=== PATIENT | female | born 1980 | race Caucasian/White ===

== ENCOUNTER 2021-03-03 12:38 | Emergency (ER) | payer OTHER, SELFPAY ==
--- NOTE | ~2021-03-03 | CT_ITS ---
EXAMINATION: CT ANGIOGRAM OF THE CHEST WITH AND WITHOUT CONTRAST (CT PULMONARY ANGIOGRAM FOR PE) CLINICAL INFORMATION: Left-sided pleuritic chest pain, elevated D-dimer. COMPARISON: Chest radiograph dated from 07/24/2019. TECHNIQUE: Prior to contrast administration, noncontrast localization images were obtained. Subsequently, multidetector volumetric imaging was performed from the thoracic inlet to below the diaphragms following the administration of 80 mL Omnipaque 350 intravenous contrast. No contrast reaction reported Sagittal, coronal, and MIP oblique sagittal reformatted images were obtained on the CT workstation, uploaded to PACS, and reviewed. This CT examination was performed using dose optimization techniques as appropriate, variously including the following: *Automated exposure control *Adjustment of mA and/or kV according to patient size (this includes techniques or standardized protocols for targeted exams where dose is matched to indication/reason for exam; i.e. extremities or head) *Use of iterative reconstruction technique Total exam dose-length product 257 mGy-cm FINDINGS: QUALITY OF STUDY/CONTRAST BOLUS: Satisfactory. PULMONARY ARTERIES: No central or segmental pulmonary emboli. THORACIC AORTA: No aneurysm or dissection. LUNG: No focal airspace opacities, pleural effusions or pneumothorax. Minimal dependent atelectasis and mild bronchial wall thickening within segmental and subsegmental bronchial branches. There is a subcentimeter calcified granuloma posteriorly in the right lower lobe. There is a 2 mm pulmonary nodule in the left lower lobe (347:7) of uncertain clinical significance. PLEURA: No pleural effusion or pneumothorax. MEDIASTINUM: Normal heart size. No pericardial effusion. No hilar or mediastinal lymphadenopathy. No evidence of septal bowing or right heart strain. CHEST WALL/AXILLA: Prominent left greater than right axillary lymph nodes are likely reactive in nature. No lymphadenopathy by size criteria. OSSEOUS STRUCTURES: No acute or suspicious osseous abnormality. UPPER ABDOMEN: Hepatic steatosis. No reflux of contrast into the hepatic veins to suggest elevated right heart pressures. CT/CT angio chest PE protocol IMPRESSION: No evidence of pulmonary embolism. Aside from minimal bronchial wall thickening which could be seen in the setting of infectious/inflammatory processes of the small airways, the lungs are clear. A tiny left lower lobe pulmonary nodule is of uncertain clinical significance and in a patient without risk factors does not requires further workup. Hepatic steatosis. VTE: negative
[2021-03-03 13:48] VITALS: BP 152/102; PULSE 88; RESP 18; TEMP 35.8; O2SAT 100; BMI 29.5
--- NOTE | 2021-03-03 21:03 | ECG_ITS ---
Test Reason : SOB Blood Pressure : / mmHG Vent. Rate : 079 BPM Atrial Rate : 079 BPM P-R Int : 180 ms QRS Dur : 078 ms QT Int : 382 ms P-R-T Axes : 000 -06 -05 degrees QTc Int : 438 ms Normal sinus rhythm Normal ECG No significant changes seen Referred By: Mathew Atwood Electronically Signed By:KERMIT MARTINEZ MD
--- NOTE | 2021-03-03 21:04 | ED_ITS ---
HPI - General Adult General Chief complaint: General Medical Stated complaint: inflamation in lungs Time Seen by Provider: 03/03/21 20:44 Source: patient Mode of arrival: ambulatory Limitations: no limitations History of Present Illness HPI narrative: 40-year-old female who presents emergency department for evaluati on of left-sided pleuritic chest pain and left arm pain. She states that the pain began on Sunday (3 days prior to arrival). She states the pain came on suddenly at 3:00 a.m.. She also developed pain in her left elbow and upper arm. She states that the chest pain is a constant, sharp pain which is located on her left anterior and posterior chest, it is worse with breathing and unchanged with movement. The pain is 8/10 at its worst. She denied shortness of breath at rest but does have dyspnea on exertion. She also is complaining of left elbow and left arm pain from the elbow to the shoulder. She states this is a constant, sharp pain which is 7/10 at its worst. The pain is worse with movement of her elbow. She denied fever, chills, cough, myalgias, arthralgias. She states the pain is worse with sitting up and does not change of she lies down flat. The patient was seen at [facility] on the day the pain pain can (Sunday). The patient states she had blood work and a CT scan without contrast which was unremarkable. She was advised to take ibuprofen and this is not been helping her pain. 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 She states that last weekend she did work there and may have injured her arm when she lifted a bucket. The patient denies any recent travel. She denies pain or swelling in her lower extremities. She does not take control pills or estrogen supplements. Related Data Allergies Allergy/AdvReac Type Severity Reaction Status Date / Time No Known Allergies Allergy Unknown Unverified 02/12/20 16:41 Review of Systems Review of Systems: Yes all other systems are reviewed and are negative [facility] Past Medical History [facility] Narrative: Past medical history: Hypertension, asthma, back problems. Past surgical history: Appendectomy, cholecystectomy. 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 She denies tobacco and alcohol use. She denies drug use. Medical History Asthma HTN (hypertension) Hyperlipidemia Social History Social History Advance Directives: No Patient : No Physical Exam Vital Signs: Vital Signs: Last Vital Signs Temp 98.4 F 03/03/21 21:48 Pulse 80 03/03/21 23:23 Resp 16 03/03/21 23:23 BP 122/84 03/03/21 23:23 Pulse Ox 98 03/03/21 23:23 Body Mass Index 29.5 Const: General: cooperative and no acute distress Orientation/consciousness: oriented to person and oriented to place Limitations: no limitations HENMT: Head: Yes normal to inspection, Yes normocephalic and Yes atraumatic Ears: external ears normal General nose exam: Normal external nose present Face and sinus: Yes normal facial exam Mouth: Normal oral and palatal mucosa present Throat: Yes posterior oropharynx normal Eyes: General: appearance normal, both eyes and all related structures Pupils: Equal, round and reactive pupils present Neck: Neck: Yes normal visual inspection, Yes no lymphadenopathy, Yes trachea midline and Yes supple Chest: Other: Normal inspection of the chest, there was no rashes or lesions noted. Patient does have tenderness with palpation of her sternum and left anterior costochondral joints. She also has tenderness with palpation of her left lateral and left posterior chest wall. Resp: Effort & Inspection: normal respiratory effort and able to speak in comp lete sentences Auscultation: clear to auscultation bilaterally Cardio: Rate: regular rate Rhythm: regular rhythm Heart sounds: S1 normal heart sound present, S2 normal heart sound present and no murmurs GI: Inspection: Yes normal to inspection Palpation (GI): Soft to palpation, nontender and no guarding Auscultation: normal bowel sounds : General: Yes no CVA tenderness Back/Spine/Pelvis: Back: no CVA tenderness Skin: General skin exam: no rashes or lesions noted Neuro: General: oriented to person and oriented to place Cranial nerves: Yes CN's II-XII intact bilaterally and Yes Equal, round and reactive pupils present Cognition (Neuro): normal cognition Motor exam (neuro): 5/5 motor strength present throughout Extrem: Other: Patient does have palpation with her elbow mainly over the lateral condyle, she has pain with active pronation supination of the elbow and less pain with passive movement of the elbow, she has minimal pain with flexion extension of the elbow. She also has pain with palpation of the biceps and triceps area of her arm with no pain with palpation over her deltoid muscle. Her extremities neurovascularly intact. Psych: Appearance: grossly normal Speech and movement: Normal speech and movement present Affect: normal affect Attitude: cooperative Thought process: Normal thought process present Thought content: Normal thought content present Course Course Course Narrative: 40-year-old female who presents emergency department for evaluation of left-sided pleuritic chest pain and left elbow and upper extremity pain x3 days. The patient's vital signs did reveal that she was hypertensive with a blood pressure of 152/102. O2 saturation was 100% on room air. Physical examination did reveal pain with movement of the left elbow which I believe is consistent with tendinitis of the elbow. She also has pain with palpation of her anterior lateral and posterior chest on the left with no skin findings. The patient was seen at [facility] 3 days prior and had a CT scan without IV contrast which was unremarkable. The patient's pain is not improved and she feels worse . Differential includes was not limited to costochondritis, chest wall injury, pericarditis, pulmonary embolism, pneumonia, pneumothorax. I obtain the following blood tests on her: CBC, CMP, D-dimer and troponin. I will obtain an EKG as well. Patient's pain was treated with Toradol 30 mg IV. 0010: Patient's D-dimer was elevated. CT chest pulmonary angiogram was obtained, there is no pulmonary embolism noted, patient does have some increased bronchial thickening which is nonspecific and I do not think this is the cause of her pleuritic pain. She has a small pulmonary nodule which I do not think is significant, the patient is not a smoker I do not think that she needs follow-up for this finding. I did discuss this with the patient. The patient did feel better after receiving IV Toradol. The patient's pleuritic pain will be treated with ibuprofen 600 mg 3 times a day and Tylenol 1000 mg 3 times a day as needed for pain. The patient was discharged home. Medical Decision Making Lab Data Result diagrams: 03/03/21 21:28 03/03/21 21:48 Labs: Lab Results 03/03/21 03/03/21 03/03/21 Range/Units 21:28 21:28 21:48 WBC 10.5 (4.8-10.8) X10*3/uL RBC 4.89 (4.20-5.50) X10*6/uL Hgb 13.9 (12.0-16.0) g/dl Hct 42.4 (37-47) % MCV 86.7 (80-98) fL MCH 28.4 (27.0-33.0) pg MCHC 32.8 (31.0-35.0) g/dl RDW 12.5 (11.0-16.0) % Plt Count 280 (160-400) X10*3/uL MPV 10.3 (9.4-12.3) fL Immature Gran % (Auto) 0.3 (0.0-0.4) % Neut % (Auto) 56.2 (45-73) % Lymph % (Auto) 33.4 (20-40) % Mitchell % (Auto) 4.8 (2-11) % Eos % (Auto) 4.8 H (0-4) % Baso % (Auto) 0.5 (0-2) % Lymph # (Auto) 3.5 (1.2-4.9) X10*3/uL Mitchell # (Auto) 0.5 (0.1-1.2) X10*3/uL Eos # (Auto) 0.5 H (0.0-0.4) X10*3/uL Baso # (Auto) 0.1 (0.0-0.2) X10*3/uL Abs Immat Gran (auto) 0.03 (0.00-0.03) X10*3/uL Absolute Neuts (auto) 5.9 (2.0-8.3) X10*3/uL Absolute Nucleated RBC 0.000 (0.0-0.012) X10*3/uL Nucleated RBC % (auto) 0.0 (0.0-0.2) /100WBC D-Dimer 290 NG/ML Sodium (135-145) mmol/L Potassium (3.3-5.1) mmol/L Chloride (96-108) mmol/L Carbon Dioxide (22-29) mmol/L Anion Gap (12-20) BUN (9-16) mg/dL Creatinine (0.5-1.4) mg/dL Estim Creat Clear Calc Estimated GFR Random Glucose (60-115) mg/dL Calcium (8.4-10.2) mg/dL Total Bilirubin (0.0-1.0) mg/dL AST (5-31) U/L ALT (0-31) U/L Alkaline Phosphatase (39-117) U/L Troponin I High Sens < 3.5 (<3.5-17.0) ng/L Total Protein (6.5-8.0) g/dL Albumin (3.5-5.0) g/dL 03/03/21 Range/Units 21:48 WBC (4.8-10.8) X10*3/uL RBC (4.20-5.50) X10*6/uL Hgb (12.0-16.0) g/dl Hct (37-47) % MCV (80-98) fL MCH (27.0-33.0) pg MCHC (31.0-35.0) g/dl RDW (11.0-16.0) % Plt Count (160-400) X10*3/uL MPV (9.4-12.3) fL Immature Gran % (Auto) (0.0-0.4) % Neut % (Auto) (45-73) % Lymph % (Auto) (20-40) % Mitchell % (Auto) (2-11) % Eos % (Auto) (0-4) % Baso % (Auto) (0-2) % Lymph # (Auto) (1.2-4.9) X10*3/uL Mitchell # (Auto) (0.1-1.2) X10*3/uL Eos # (Auto) (0.0-0.4) X10*3/uL Baso # (Auto) (0.0-0.2) X10*3/uL Abs Immat Gran (auto) (0.00-0.03) X10*3/uL Absolute Neuts (auto) (2.0-8.3) X10*3/uL Absolute Nucleated RBC (0.0-0.012) X10*3/uL Nucleated RBC % (auto) (0.0-0.2) /100WBC D-Dimer NG/ML Sodium 138 (135-145) mmol/L Potassium 4.3 (3.3-5.1) mmol/L Chloride 106 (96-108) mmol/L Carbon Dioxide 24 (22-29) mmol/L Anion Gap 12 (12-20) BUN 10 (9-16) mg/dL Creatinine 0.83 (0.5-1.4) mg/dL Estim Creat Clear Calc 87.8 Estimated GFR > 60 Random Glucose 86 (60-115) mg/dL Calcium 9.5 (8.4-10.2) mg/dL Total Bilirubin 0.5 (0.0-1.0) mg/dL AST 19 (5-31) U/L ALT 24 (0-31) U/L Alkaline Phosphatase 84 (39-117) U/L Troponin I High Sens (<3.5-17.0) ng/L Total Protein 7.5 (6.5-8.0) g/dL Albumin 4.1 (3.5-5.0) g/dL Discharge Plan Discharge Clinical Impression: Pleuritic chest pain, Left elbow tendinitis Patient Disposition: Home, Self-Care Instructions: Pleurisy (ED), Tendinitis (ED) Additional Instructions: Take ibuprofen 200 mg pills, 3 pills every 6 hours for 4 days then as needed for pain Take Tylenol (acetaminophen) 500 mg pills, 2 pills every 4 to 6 hours as needed for pain. Follow-up with your doctor in 2 days. Please return to the emergency department if your symptoms get worse or if you develop any symptoms that are concerning to you. Stand Alone Forms: Work/School Release
[2021-03-03 21:33] LABS: MANUAL DIFF FLAG NO
[2021-03-03 21:34] LABS: Basophils Absolute Auto 0.1 X10*3/uL (0.0-0.2); Basophils Percent Auto 0.5 % (0-2); Eosinophils Absolute Auto 0.5 X10*3/uL (0.0-0.4); Eosinophils Percent Auto 4.8 % (0-4); Hematocrit 42.4 % (37-47); Hemoglobin 13.9 g/dl (12.0-16.0); Imm Gran Abs Auto 0.03 X10*3/uL (0.00-0.03); Imm Gran Pct Auto 0.3 % (0.0-0.4); Lymphocytes Absolute Auto 3.5 X10*3/uL (1.2-4.9); Lymphocytes Percent Auto 33.4 % (20-40); Mean Corpuscular HGB Conc 32.8 g/dl (31.0-35.0); Mean Corpuscular Hemoglobin 28.4 pg (27.0-33.0); Mean Corpuscular Volume 86.7 fL (80-98); Mean Platelet Volume 10.3 fL (9.4-12.3); Monocytes Absolute Auto 0.5 X10*3/uL (0.1-1.2); Monocytes Percent Auto 4.8 % (2-11); Neutrophils Absolute Auto 5.9 X10*3/uL (2.0-8.3); Neutrophils Percent Auto 56.2 % (45-73); Platelet Count 280 X10*3/uL (160-400); Red Blood Count 4.89 X10*6/uL (4.20-5.50); Red Cell Distribution Width 12.5 % (11.0-16.0); White Blood Count 10.5 X10*3/uL (4.8-10.8)
[2021-03-03 21:48] VITALS: BP 131/92; PULSE 73; RESP 16; TEMP 36.9; O2SAT 100
[2021-03-03 21:52] LABS: Troponin-I High Sensitivity < 3.5 ng/L (<3.5-17.0)
[2021-03-03 22:02] LABS: D Dimer 290 NG/ML
[2021-03-03 22:12] LABS: Alanine Aminotransferase 24 U/L (0-31); Albumin Level 4.1 g/dL (3.5-5.0); Alkaline Phosphatase 84 U/L (39-117); Anion Gap 12 (12-20); Aspartate Amino Transferase 19 U/L (5-31); Bilirubin Total 0.5 mg/dL (0.0-1.0); Blood Urea Nitrogen 10 mg/dL (9-16); Calcium 9.5 mg/dL (8.4-10.2); Carbon Dioxide 24 mmol/L (22-29); Chloride 106 mmol/L (96-108); Creatinine Clr Calc Pharmacy 87.8; Estimated Glomerular Filt Rate > 60; Glucose Random 86 mg/dL (60-115); Potassium 4.3 mmol/L (3.3-5.1); Sodium 138 mmol/L (135-145); Total Protein 7.5 g/dL (6.5-8.0)
[2021-03-03] MEDS: Ketorolac Tromethamine 15 MG/ML VIAL 30 MG IVPUSH (22:23)
[2021-03-03 23:23] VITALS: BP 122/84; PULSE 80; RESP 16; O2SAT 98
[2021-03-03] MEDS: iohexoL 350 MG/ML 100 ML INFUS..BTL 65 ML IV (23:25)
== END 2021-03-04 00:46 | disposition home or self-care (01) ==
PROVIDERS: Emergency Provider Emergency Medicine Emergency Medical Services; PCP Internal Medicine
DX: R07.1 Chest pain on breathing (principal); M77.8 Other enthesopathies, not elsewhere classified; R79.1 Abnormal coagulation profile; I10 Essential (primary) hypertension; J45.909 Unspecified asthma, uncomplicated
CPT/HCPCS: 36415; 71275; 80053; 84484; 85025; 85379; 93005; 96374; 99284; J1885; Q9967

== ENCOUNTER 2024-01-08 15:00 | Outpatient (REF) | payer OTHER, SELFPAY ==
[2024-01-10 16:39] LABS: HPV mRNA E6/E7 Not Detected (Not Detected)
== END 2024-01-08 15:01 | disposition home or self-care (01) ==
LOC: HO.LNP 15:00
PROVIDERS: PCP Internal Medicine; Visit Provider Advanced Practice Midwife
DX: Z01.419 Encounter for gynecological examination (general) (routine) without abnormal findings (principal); Z12.4 Encounter for screening for malignant neoplasm of cervix; Z12.39 Encounter for other screening for malignant neoplasm of breast
CPT/HCPCS: 87624; 88175; 99386

== ENCOUNTER 2024-01-08 15:00 | Outpatient (AMB) | payer OTHER, SELFPAY ==
--- NOTE | 2024-01-08 15:25 | MHC.OFFVIS ---
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 Challenge Instructor Required: No Information Interpreted: clinical only Impact Retail Service Merchandiser: Impact Retail Service Merchandiser Present Allergies No Known Allergies Allergy (Unknown, Unverified 01/08/24 15:33) Medication List - Last Reconciled 01/08/24 by Adelaide Cat CNM omeprazole 20 mg PO DAILY verapamil ER 100 mg PO BEDTIME Is last menstrual period known: Yes Last menstrual period: 12/25/23 Do you need a note to return to daycare/school/sports/work: No HPI HPI 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 She has 1 son 17 years old about to be 18 is in high school. 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 She delivered vaginally she gets regular periods she is 43 years old and she gets her regular mammograms. She is not contraceptive thing if she got she would be shocked but it would be okay [facility] Medical History Hyperlipidemia Asthma HTN (hypertension) Female Reproductive History Menstrual Age of Menarche: 12 Duration of menses: 3-5 days Date of last menstrual period: 12/25/23 control method: none Total pregnancies: 1 Full term: 1 Date of last pap smear: 06/27/19 (neg.per patient) History of abnormal pap smear: Yes (unsure date) Physical Exam Vital Signs: Last Vital Signs BP 120/70 01/08/24 15:33 BMI result Body Mass Index 29.8 Const General: healthy appearing, comfortable, no acute distress, well developed and alert Nutritional Appearance: average body habitus Orientation/consciousness: patient oriented x3 Limitations: no limitations HEENT Head: Yes normocephalic Neck Neck: Yes normal visual inspection Chest Chest palpation & inspection: normal inspection of the chest Breast/axilla inspection: normal inspection of the breasts and normal inspection of the axillae Breast/axilla palpation: normal palpation of the breasts and normal palpation of the axillae Resp Effort & Inspection: normal respiratory effort GI Inspection: Yes normal to inspection, No Abdominal wall edema and No distended Palpation (GI): Soft to palpation and nontender General: Yes bladder normal to palpation External Female Exam: normal external appearance and normal appearance of the urethra Speculum Exam - Vagina: normal appearance of the vagina, normal palpation and normal vaginal discharge Speculum Exam - Cervix: normal appearance of the cervix, normal palpation and nontender Bimanual exam- vagina & uterus: normal bimanual exam, normal palpation, uterine size normal, bladder normal to palpation, consistency normal, normal palpation, uterine mobility normal, uterine shape normal, No Cervical tenderness present, non-tender and no cervical motion tenderness Bimanual Exam- Adnexa, other: normal adnexae, no masses, normal and No adnexal tenderness Neuro General: patient oriented x3 Assessment & Plan Assessment & Plan (1) Well woman exam with routine gynecological exam: Code(s): Z01.419 - Encounter for gynecological examination (general) (routine) without abnormal findings Category: Medical (2) Cervical cancer screening: Code(s): Z12.4 - Encounter for screening for malignant neoplasm of cervix Category: Medical (3) Breast cancer screening: Code(s): Z12.39 - Encounter for other screening for malignant neoplasm of breast Category: Medical Plan -----Discussed in this visit the following: healthy balanced diet, regular and consistent exercise, getting recommended health screens, doing the best she can for her particular health concerns, kegel exercises, pap smear screening and followup recommendations, mammography screening and SBE, normal changes in cycles in her life stage--- . Patient has her mammograms ordered from [facility] but she gets them at [facility] and she has her next 1 scheduled in January. She has no concerns at all about STIs and declined any testing. She sees her primary care provider at [facility] and has no other health concerns we will see her in 1 year. Coding Level of Care Code New Pt Prev Care 40-64y(22290) Diagnoses Well woman exam with routine gynecological exam Z01.419 Cervical cancer screening Z12.4 Breast cancer screening Z12.39
[2024-01-08 15:33] VITALS: BP 120/70; BMI 29.8
== END 2024-01-08 16:24 | disposition home or self-care (01) ==
PROVIDERS: PCP Internal Medicine; Visit Provider Advanced Practice Midwife
DX: Z01.419 Encounter for gynecological examination (general) (routine) without abnormal findings (principal); Z12.4 Encounter for screening for malignant neoplasm of cervix; Z12.39 Encounter for other screening for malignant neoplasm of breast
CPT/HCPCS: 99386